=== PATIENT | female | born 2000 | race Caucasian/White ===

== ENCOUNTER 2019-07-19 01:11 | Emergency (ER) | payer OTHER, MEDICAID ==
[2019-07-19 03:02] LABS: APPEARANCE,URINE CLEAR; BILIRUBIN,URINE NEGATIVE (NEGATIVE); COLOR,URINE YELLOW; GLUCOSE, URINE NEGATIVE (NEGATIVE); KETONES,URINE NEGATIVE (NEGATIVE); LEUKOCYTE ESTERASE,URINE TRACE (NEGATIVE); NITRITE,URINE NEGATIVE (NEGATIVE); PROTEIN,URINE NEGATIVE (NEGATIVE); URINE SPECIFIC GRAVITY 1.025; UROBILINOGEN,URINE NEGATIVE mg/dL (<2.0)
--- NOTE | 2019-07-19 04:10 | ER Document Report ---
HPI - HPI Time Seen by Provider: 07/19/19 03:47 Pain Level: Denies Context: Patient is a 18-year-old female that comes to the emergency department for chief complaint of painful urination that has been worsening for the past 3 days. She denies abdominal pain, flank pain, nausea, vomiting, fever/chills, or any other complaints. She denies vaginal bleeding. She does report some whitish vaginal discharge. She states she is sexually active with her fianc, denies concerns of STD. She denies any daily medications. She has had a cholecystectomy, denies medical history otherwise. - REPRODUCTIVE Reproductive: DENIES: : Past Medical History - General Information source: Patient - Social History Smoking Status: Current Some Day Smoker Frequency of alcohol use: None Drug Abuse: None Lives with: Family Family History: Reviewed & Not Pertinent Patient has homicidal ideation: No Surgical Hx: Negative - Immunizations Immunizations up to date: Yes Hx Diphtheria, Pertussis, Tetanus Vaccination: Yes Vertical Provider Document - CONSTITUTIONAL General Appearance: WD/WN, No Apparent Distress - HEENT HEENT: Atraumatic, Normal ENT Exam, Normocephalic - NECK Neck: Normal Inspection - RESPIRATORY Respiratory: Breath Sounds Normal, No Respiratory Distress - CARDIOVASCULAR Cardiovascular: Regular Rate, Regular Rhythm - GI/ABDOMEN Gastrointestinal: Abdomen Soft, Abdomen Non-Tender. negative: Abdomen Tender - BACK Back: Normal Inspection - MUSCULOSKELETAL/EXTREMETIES Musculoskeletal/Extremeties: MAEW, FROM, Non-Tender - NEURO Level of Consciousness: Awake, Alert, Appropriate Motor/Sensory: No Motor Deficit, No Sensory Deficit - DERM Integumentary: Warm, Dry, No Rash Course - Re-evaluation Re-evalutation: Patient with dysuria reported, no tenderness over the abdomen, no CVA tenderness, no fever, no nausea or vomiting. Urine is borderline with only a few white blood cells and trace leukocyte esterase. Culture was placed. Because of patient's dysuria, vaginal discharge, and borderline urine I recommended pelvic exam to test for pelvic infection causing her symptoms. Patient considered this for a time but then ultimately declined, states she would like to try antibiotics for possible urinary tract infection causing her symptoms first, she states she will either follow-up with primary care or return if she worsens, patient does understand that she could have a pelvic infection causing the symptoms, but again she states she will either return for follow-up. Stable and well-appearing at time of discharge. - Vital Signs Vital signs: Temp Pulse Resp BP Pulse Ox 98.8 F 79 14 124/74 99 07/19/19 02:30 07/19/19 02:30 07/19/19 02:30 07/19/19 02:30 07/19/19 02:30 - Laboratory Laboratory results interpreted by me: 07/19/19 02:35 Ur Leukocyte Esterase TRACE H Discharge - Discharge Clinical Impression: Dysuria Condition: Stable Disposition: HOME, SELF-CARE Additional Instructions: You are being treated for urinary tract infection. Take antibiotics as prescribed to completion. Follow-up with primary care for additional management. Return for any concerning symptoms including developing abdominal pain, flank pain, nausea, vomiting, fever/chills, or any other concerning symptoms. Prescriptions: Cephalexin Monohydrate [Keflex 500 mg Capsule] 500 mg PO BID 5 Days #10 capsule
[2019-07-19 04:18] VITALS: BP 119/69
== END 2019-07-19 04:28 | disposition home or self-care (01) ==
LOC: ER 01:11
DX: R30.0 Dysuria (principal); N89.8 Other specified noninflammatory disorders of vagina; Z90.49 Acquired absence of other specified parts of digestive tract; F17.200 Nicotine dependence, unspecified, uncomplicated
CPT/HCPCS: 81001; 87086; 99283